=== PATIENT | male | born 1950 | race Asian ===

== ENCOUNTER 2022-11-09 13:40 | Emergency (ER) | payer MEDICARE ==
[~2022-11-09] VITALS: Ht 162.6 cm; Wt 54.7 kg
[2022-11-09] MEDS ORDERED: ACETAMINOPHEN 325 MG TAB PO ONE (15:30)
[2022-11-09] MEDS ORDERED: ACETAMINOPHEN 325 MG TAB ONE (15:34)
[2022-11-09] MEDS ORDERED: CEFDINIR300 MG PO (15:40)
[2022-11-09] MEDS ORDERED: KETOROLAC TROMETHAMINE 30 MG/ML VIAL IV ONE (15:45)
[2022-11-09 16:01] VITALS: BP 165/87; PULSE 58; RESP 17; TEMP 99.7; O2SAT 98
== END 2022-11-09 16:30 | disposition home or self-care (01) ==
LOC: FSED 13:44
DX: M54.50 Low back pain, unspecified (principal); N30.90 Cystitis, unspecified without hematuria; K40.20 Bilateral inguinal hernia, without obstruction or gangrene, not specified as recurrent; E78.5 Hyperlipidemia, unspecified; I10 Essential (primary) hypertension; M10.9 Gout, unspecified
CPT/HCPCS: 72131; 74176; 80053; 81003; 85025; 99284; J1885